=== PATIENT | male | born 1955 | race Caucasian/White ===

== ENCOUNTER 2017-07-17 11:05 | Emergency (ER) | payer MEDICARE, OTHER ==
[~2017-07-17] VITALS: Ht 180.3 cm; Wt 54.9 kg
[~2017-07-17 11:05] MED LIST: FINA5TAB11 PO
--- NOTE | 2017-07-17 11:07 | NUR ---
PT AMBULATORY TO ER BED 10. C/O L SIDE RIB CAGE AREA PAIN S/P FALL A WEEK AGO. DENIES ANY OTHER TRAUMA. PT STATES PAIN IS GETTING WORST. GOWNED AND PLACED ON MONITOR. AWAITING MD DELAROSA.
[2017-07-17] MEDS ORDERED: IBUPROFEN 400 MG TABLET PO ONE (11:30)
--- NOTE | 2017-07-17 11:30 | NUR ---
PT TO RADIOLOGY FOR C SPINE CT SCAN VIA WHEELCHAIR.
[2017-07-17] MEDS ORDERED: IBUPROFEN 400 MG TABLET ONE (11:33)
--- NOTE | 2017-07-17 12:30 | NUR ---
RECEIVED A CALL FROM [facility], HE NOTIFIED ME MRI IS APPROVED.
--- NOTE | 2017-07-17 16:11 | NUR ---
Patient discharged to home in stable condition. Written and verbal after care instructions given. Patient verbalizes understanding of instruction.
[2017-07-17 16:14] VITALS: BP 132/75
== END 2017-07-17 16:15 | disposition home or self-care (01) ==
LOC: ER 11:06
DX: R07.81 Pleurodynia (principal); M54.2 Cervicalgia; R51 Headache
CPT/HCPCS: 70450; 71010; 72125; 99284; A4606; Z7610

== ENCOUNTER 2022-09-16 20:04 | Emergency (ER) | payer MEDICARE, OTHER ==
[~2022-09-16] VITALS: Ht 182.9 cm; Wt 58.1 kg
--- NOTE | 2022-09-16 22:15 | NUR ---
Patient came in to the er c/o abd pain since 2pm today 8/10 ps, denies nausea vomiting/diarrhea. On room air, breathing evenly and unlabored. Kept comfortable, will continue to monitor accordingly.
[2022-09-16] MEDS ORDERED: MORPHINE SULFATE INJ 2 MG/ML DISP.SYRIN IV ONE (22:30)
[2022-09-16] MEDS ORDERED: IV NS 0.9% 500 ML BAG IV ONE (22:30)
[2022-09-16] MEDS ORDERED: ONDANSETRON HCL/PF 4 MG/2 ML VIAL IVP ONE (22:30)
[2022-09-16] MEDS ORDERED: ONDANSETRON HCL/PF 4 MG/2 ML VIAL ONE (22:36)
[2022-09-16] MEDS ORDERED: MORPHINE SULFATE INJ 2 MG/ML DISP.SYRIN ONE (22:36)
--- NOTE | 2022-09-16 22:44 | NUR ---
urine collected and sent to lab.
--- NOTE | 2022-09-16 23:12 | NUR ---
MACK SISTER [phone]
[2022-09-16 23:15] LABS: BASOPHILS % (AUTO) 0.4 % (0.0-2.0); EOSINOPHILS % (AUTO) 1.7 % (0.0-6.0); HEMATOCRIT 39 % (39-51); HEMOGLOBIN 13.1 g/dL (13.5-17.5); LYMPHOCYTES # (AUTO) 1.6 K/uL (0.8-4.8); LYMPHOCYTES % (AUTO) 33.6 % (20.0-44.0); MEAN CORPUSCULAR HGB CONC 33 g/dl (31.0-36.0); MEAN CORPUSCULAR VOLUME 99 fL (80-96); MONOCYTES # (AUTO) 0.6 K/uL (0.1-1.30); MONOCYTES % (AUTO) 13.3 % (2.0-12.0); NEUTROPHILS # (AUTO) 2.4 K/uL (1.8-8.9); PLATELET COUNT (AUTO) 145 K/uL (150-450); RED BLOOD CELL COUNT(AUTO) 3.97 MIL/uL (4.5-6.0); WHITE BLOOD COUNT (AUTO) 4.7 K/uL (4.3-11.0)
[2022-09-16 23:21] LABS: BILIRUBIN,URINE NEGATIVE (NEGATIVE); COLOR,URINE YELLOW (YELLOW); LEUKOCYTE ESTERASE ,URINE NEGATIVE (NEGATIVE); NITRITE, URINE NEGATIVE (NEGATIVE); PROTEIN,URINE NEGATIVE (NEGATIVE); UGLUCOSE NEGATIVE (NEGATIVE); UROBILINOGEN,URINE 0.2 EU/dL (0.2)
[2022-09-16 23:33] LABS: ALANINE AMINOTRANSFERASE 39 U/L (12-78); ALBUMIN 4.1 g/dL (3.4-5.0); ALKALINE PHOSPHATASE 83 U/L (46-116); ASPARTATE AMINOTRANSFERASE 28 U/L (15-37); BILIRUBIN,DIRECT 0.1 mg/dL (0.0-0.2); BILIRUBIN,TOTAL 0.3 mg/dL (0.2-1.0); CALCIUM, SERUM 9.9 mg/dL (8.5-10.1); CARBON DIOXIDE 33 mmol/L (21-32); CHLORIDE 100 mmol/L (98-107); CREATININE 1.1 mg/dL (0.6-1.3); GLUCOSE 90 mg/dL (74-106); LIPASE 152 U/L (73-393); POTASSIUM 5.1 mmol/L (3.5-5.1); SODIUM SERUM 135 mmol/L (136-145); TOTAL PROTEIN, SERUM 7.9 g/dL (6.4-8.2); UREA NITROGEN, BLOOD 22 mg/dL (7-18)
[2022-09-17] MEDS ORDERED: DOCU-141 PO (01:45)
[2022-09-17] MEDS ORDERED: POLY119P2 PO (01:45)
[2022-09-17 01:50] VITALS: BP 135/66
--- NOTE | 2022-09-17 01:50 | NUR ---
Patient discharged to home in stable condition. Written and verbal after care instructions given. Patient verbalizes understanding of instruction.IV removed. Catheter intact and site benign. Pressure and 4x4 applied to site. No bleeding noted.
== END 2022-09-17 01:50 | disposition home or self-care (01) ==
LOC: ER 20:32
DX: K59.00 Constipation, unspecified (principal); R10.13 Epigastric pain; Z79.899 Other long term (current) drug therapy
CPT/HCPCS: 99285; 74176; 96374; 71045; 96375; 93005; 85025; 80048; 83690; 80076; 81003; 36415 ×2; 84484 ×2; 85730; J2405; J7040; J2270